=== PATIENT | female | born 1995 | race Asian ===

== ENCOUNTER 2022-12-29 09:34 | Emergency (ER) | payer OTHER ==
[~2022-12-29] VITALS: Ht 162.6 cm; Wt 68.0 kg
[2022-12-29 09:35] VITALS: BP_SYST 152
--- NOTE | 2022-12-29 09:35 | NUR ---
Placed in room 03 . Placed on monitoring tech, blood pressure machine and pulse oximeter. To gown for exam. Side rails up. Report given to SONIA STEWART.
--- NOTE | 2022-12-29 09:48 | NUR ---
PT BIB MOM, AWAKE AND ALERT AOX4. NO SOB OR DISTRESS. PT C/O ALLERGIC REACTION AND SWELLING TO LEFT SIDE OF FACE AND L EYE X 4 DAYS. PT 02 SAT 100% ON RA, AND DENIES SOB. PT HAS NO MED HX. PT STATED SHE IS ALLERGIC TO CERTAIN PLANTS AND CATS/DOG. PT SAID SWELLING HAS GOTTEN WORSE TODAY.
--- NOTE | 2022-12-29 09:51 | NUR ---
MD DR TOWNSEND AT BEDSIDE
[2022-12-29] MEDS ORDERED: EPINEPHRINE HCL/PF 1 MG/ML AMP IM ONE (10:00)
[2022-12-29] MEDS ORDERED: FAMOTIDINE 20 MG TABLET PO ONE (10:00)
[2022-12-29] MEDS ORDERED: predniSONE 20 MG TABLET PO ONE (10:00)
[2022-12-29] MEDS ORDERED: predniSONE 20 MG TABLET ONE (10:15)
[2022-12-29] MEDS ORDERED: EPIN0.3P3 IM (11:36)
[2022-12-29] MEDS ORDERED: FAMO20TA8 PO (11:36)
[2022-12-29] MEDS ORDERED: DIPH25CA83 PO (11:36)
[2022-12-29] MEDS ORDERED: PRED20TA PO (11:36)
[2022-12-29] MEDS ORDERED: BACITRACIN 1 GM OINT TP ONE (11:45)
[2022-12-29 13:09] VITALS: BP_SYST 132
--- NOTE | 2022-12-29 13:10 | NUR ---
Patient given written and verbal discharge instructions and verbalizes understanding. ER MD DR TOWNSEND discussed with patient the results and treatment provided. Patient in stable condition. ID arm band removed. Rx of PEPCID, EPIPEN, PREDINSONE, BENADRYL given. Patient educated on pain management and to follow up with PMD. Pain Scale 0/10. Opportunity for questions provided and answered. Medication side effect fact sheet provided.
== END 2022-12-29 13:10 | disposition home or self-care (01) ==
LOC: SED 09:34
DX: T78.3XXA Angioneurotic edema, initial encounter (principal); R21 Rash and other nonspecific skin eruption; R22.0 Localized swelling, mass and lump, head; Z79.899 Other long term (current) drug therapy
CPT/HCPCS: 99283; 81025; 96372; J7512; J0171